=== PATIENT | male | born 1955 | race Caucasian/White ===

== ENCOUNTER 2017-04-09 22:22 | Emergency (ER) | payer SELFPAY ==
[2017-04-09 22:30] VITALS: BP 172/81; PULSE 78; RESP 18; TEMP 96.9
--- NOTE | 2017-04-09 22:53 | XR ---
EXAMINATION TYPE: XR hand complete LT DATE OF EXAM: 04/09/2017 COMPARISON: NONE HISTORY: Pain TECHNIQUE: 3 views FINDINGS: There is some spurring at the first carpometacarpal joint. There is some cystic change at the base of the proximal phalanx of the index finger with minimal expa nsion. There is minor spurring at the IP joints of the fingers. There is no sign of a foreign body. IMPRESSION: Cystic changes in the index finger as above could relate to old injury or sequela of unic ameral bone cyst. No acute bony abnormality seen.
--- NOTE | 2017-04-09 23:35 | ED ---
Wound/Laceration HPI - General Chief Complaint: Wound/Laceration Stated Complaint: hand lac Time Seen by Provider: 04/09/17 22:31 Source: patient Mode of arrival: EMS Limitations: no limitations - History of Present Illness Initial Comments: 62-year-old male patient presents for evaluation of a laceration to his left hand. Patient states he was at work just prior to arrival when he was backing up in a [employer] truck and crushed his hand between the wall and the truck. Patient states that this caused a laceration. He is having some pain to the hand. Denies any numbness or tingling. He denies any difficulty with range of motion of the fingers or wrist. Patient states his last tetanus vaccine was one year ago. He denies any wrist, elbow, or shoulder pain. He denies any other injuries. Patient does take a baby aspirin daily. Patient denies any headache, neck pain, back pain, chest pain, shortness of breath, dizziness, weakness, abdominal pain, nausea, vomiting, or difficulties with bowel movements or urination. - Related Data Allergies Allergy/AdvReac Type Severity Reaction Status Date / Time No Known Allergies Allergy Verified 04/09/17 22:27 Review of Systems ROS Statement: Those systems with pertinent positive or pertinent negative responses have been documented in the HPI. ROS Other: All systems not noted in ROS Statement are negative. Past Medical History Past Medical History: Cancer, Diabetes Mellitus, Hypertension Additional Past Medical History / Comment(s): prostate cancer History of Any Multi-Drug Resistant Organisms: None Reported Past Surgical History: Prostate Surgery Past Psychological History: No Psychological Hx Reported Smoking Status: Never smoker Past Alcohol Use History: Occasional Past Drug Use History: None Reported General Exam Limitations: no limitations General appearance: alert, in no apparent distress, other (This is a well- developed, well-nourished adult male patient in no acute distress. Vital signs upon presentation temperature 96.9F, pulse 78, respirations 18, blood pressure 172/81, pulse ox 97% on room air.) Head exam: Present: atraumatic, normocephalic, normal inspection Eye exam: Present: normal appearance, PERRL, EOMI. Absent: scleral icterus, conjunctival injection, periorbital swelling Respiratory exam: Present: normal lung sounds bilaterally. Absent: respiratory distress, wheezes, rales, rhonchi, stridor Cardiovascular Exam: Present: regular rate, normal rhythm, normal heart sounds. Absent: systolic murmur, diastolic murmur, rubs, gallop, clicks Extremities exam: Present: full ROM, normal capillary refill, other (Patient does have a 5 cm laceration to the palmar aspect of his left hand starting at the base of the left thumb extending down into the thenar eminence. Skin is otherwise pink, warm, and dry. Patient has full range of motion of all fingers against resistance. Cap refill less than 3 seconds. Radial pulses 2+ and equal bilaterally. Patient has full range of motion of the left wrist, elbow, and shoulder without pain or limitation.). Absent: tenderness, pedal edema, joint swelling, calf tenderness Neurological exam: Present: alert, oriented X3, CN II-XII intact Psychiatric exam: Present: normal affect, normal mood Skin exam: Present: warm, dry, intact, normal color. Absent: rash Course Vital Signs 04/09/17 22:28 Temperature 96.9 F L Pulse Rate 78 Respiratory 18 Rate Blood Pressure 172/81 O2 Sat by Pulse 97 Oximetry Procedures - Laceration Laceration #1 Consent Obtained: verbal consent Time Out Performed: Yes Indication: laceration Site: hand Size (cm): 5 Description: linear Depth: simple, single layer Anesthetic Used: lidocaine 1% Anesthesia Technique: local infiltration Amount (mls): 14 Pre-repair: wound explored, irrigated extensively Type of Sutures: nylon Size of Sutures: 4-0 (4 stitches of 4-0), 5-0 (4 stitches of 5-0) Number of Sutures: 8 Technique: simple, interrupted Patient Tolerated Procedure: well, no complications Medical Decision Making - Medical Decision Making 62-year-old male patient presented to emergency department today for evaluation of a laceration crush injury to the left hand. X-ray of the hand showed no acute osseous abnormalities. Laceration was repaired. The patient was educated regarding signs or symptoms of infection. He was instructed regarding wound care instructions. He is instructed to return here or follow-up with [facility] for any new, worsening, or concerning symptoms. He verbalizes understanding and agrees with this plan. - Radiology Data Radiology results: report reviewed, image reviewed 3 views of the left hand shows some spurring at the first carpometacarpal joint. There is some cystic change of the base of the proximal phalanx of the indexing her with minimal expansion. There is minor spurring at the IP joints of the fingers. There is no sign of foreign body. Impression by Dr. Matos shows cystic changes in the index finger as above could relate to old injury or sacral of unicameral bone cyst. No acute bony abdomen mildly seen. Disposition Clinical Impression: Laceration of left hand Disposition: HOME SELF-CARE Condition: Good Instructions: Care For Your Stitches (ED), Laceration (ED) Additional Instructions: Keep wound clean and dry. Generally wash twice daily with warm soap and water to prevent scabbing. Return for suture removal of stitches in 7 days. Keep covered if you are doing dirty work. Monitor for signs or symptoms of infection including but not limited to redness, swelling, drainage, increased pain, fever, or chills. Follow-up with [facility] services or return here for any new, worsening, or concerning symptoms. Referrals: Anton Gamez DO [Primary Care Provider] - 1-2 days Time of Disposition: 23:35
== END 2017-04-09 23:53 | disposition home or self-care (01) ==
LOC: EC 22:22
DX: S61.412A Laceration without foreign body of left hand, initial encounter (principal); Z85.46 Personal history of malignant neoplasm of prostate; W23.0XXA Caught, crushed, jammed, or pinched between moving objects, initial encounter; Y92.69 Other specified industrial and construction area as the place of occurrence of the external cause; Y93.89 Activity, other specified; Y99.0 Civilian activity done for income or pay
CPT/HCPCS: 12002; 99283